=== PATIENT | female | born 1960 | race Caucasian/White ===

== ENCOUNTER 2020-11-30 09:34 | Day surgery (SDC) | payer BC ==
[~2020-11-30 09:34] MED LIST: Glycopyrrolate 0.2 MG/ML SDV ONE; Lactated Ringers 1,000 ML IV SCH; Midazolam 1 MG/ML 2 ML SDV ONE; Ondansetron 4 MG/2 ML SDV ONE; Propofol 200 MG/20 ML SDV ONE; fentaNYL 100 MCG/2 ML SDV ONE
--- NOTE | 2020-11-30 10:08 | PCM.PREANE ---
Preanesthetic Assessment - Anesthesia/Transfusion/Family Hx Anesthesia History: Prior Anesthesia Without Reaction Family History of Anesthesia Reaction: No Transfusion History: No Prior Transfusion(s) - Review of Systems General: No Symptoms Pulmonary: No Symptoms Cardiovascular: No Symptoms Gastrointestinal: No Symptoms Neurological: No Symptoms Other: Reports: None - Physical Assessment NPO Status Date: 11/30/20 NPO Status Time: 00:01 Vital Signs: Last Vital Signs Temp 97.9 F 11/30/20 09:40 Pulse 65 11/30/20 09:40 Resp 99 H 11/30/20 09:40 BP 113/65 11/30/20 09:40 Pulse Ox Height: 5 ft 5.25 in Weight: 137 lb ASA Class: 2 Mental Status: Alert & Oriented x3 Airway Class: Mallampati = 2 Dentition: Reports: Normal Dentition ROM/Head Extension: Full Lungs: Clear to Auscultation, Normal Respiratory Effort Cardiovascular: Regular Rate, Regular Rhythm - Allergies Allergies/Adverse Reactions: Allergies Allergy/AdvReac Type Severity Reaction Status Date / Time cephalexin monohydrate Allergy Other Verified 11/24/20 11:27 [From Keflex] codeine Allergy Airway Verified 11/24/20 11:27 Tightness nickel Allergy Rash Verified 11/24/20 11:27 - Anesthesia Plan Pre-Op Medication Ordered: None - Acknowledgements Anesthesia Type Planned: General Anesthesia Pt an Appropriate Candidate for the Planned Anesthesia: Yes Alternatives and Risks of Anesthesia Discussed w Pt/Guardian: Yes Pt/Guardian Understands and Agrees with Anesthesia Plan: Yes Additional Comments: npo after mn brannon tob quit 1999 etoh quit 1979 fatigue no cv problems depression par no questopns bmi 22 PreAnesthesia Questionnaire - Past Health History Medical/Surgical History: Denies Medical/Surgical History HEENT History: Reports: Other (See Below) Other HEENT History: wears glasses Cardiovascular History: Reports: None Respiratory History: Reports: None Gastrointestinal History: Reports: None Other Gastrointestinal History: takes Omeprazole occasionally Genitourinary History: Reports: None YARD ATTENDANT History: Reports: Endometriosis Other Musculoskeletal History: chronic fatique syndrome Neurological History: Reports: None Psychiatric History: Reports: Depression Endocrine/Metabolic History: Reports: None Other Endocrine/Metabolic History: hypoglycemic Hematologic History: Reports: None Immunologic History: Reports: None Oncologic (Cancer) History: Reports: Basal Cell Carcinoma Other Oncologic History: hx skin cancer Dermatologic History: Reports: None - Past Surgical History HEENT Surgical History: Reports: Tonsillectomy Other Female Surgeries/Procedures: laparoscopy x2 for endometriosis, cryo ablation of cervix Other Musculoskeletal Surgeries/Procedures:: hx foot surgery - SUBSTANCE USE Tobacco Use Status *Q: Former Tobacco User Tobacco Use Within Last Twelve Months: No Recreational Drug Use History: No - HOME MEDS Home Medications: Home Meds buPROPion [Wellbutrin] 150 mg PO DAILY 09/03/14 [History] Omeprazole 20 mg PO DAILY PRN 11/24/20 [History] estradioL [Estrace 0.01% Vaginal Crm] 1 dose VAG ASDIRECTED 11/24/20 [History] - CURRENT (IN HOUSE) MEDS Current Meds: Current Medications Lactated Ringer's (Ringers, Lactated) 1,000 mls @ 125 mls/hr IV ASDIRECTED FARIBA Discontinued Medications Fentanyl (Fentanyl 100 Mcg/2 Ml Sdv) Confirm Administered Dose 100 mcg .ROUTE .STK-MED ONE Stop: 11/30/20 08:25 Glycopyrrolate (Glycopyrrolate 0.2 Mg/Ml Sdv) Confirm Administered Dose 0.2 mg .ROUTE .STK-MED ONE Stop: 11/30/20 08:25 Acetaminophen (Ofirmev 1000 Mg/100 Ml) Confirm Administered Dose 100 mls @ as directed .ROUTE .STK-MED ONE Stop: 11/30/20 08:26 Midazolam HCl (Midazolam 1 Mg/Ml 2 Ml Sdv) Confirm Administered Dose 2 mg .ROUTE .STK-MED ONE Stop: 11/30/20 08:25 Ondansetron HCl (Ondansetron 4 Mg/2 Ml Sdv) Confirm Administered Dose 4 mg .ROUTE .STK-MED ONE Stop: 11/30/20 08:25 Propofol (Propofol 200 Mg/20 Ml Sdv) Confirm Administered Dose 400 mg .ROUTE .STK-MED ONE Stop: 11/30/20 08:25
[2020-11-30] MEDS ORDERED: Bupivacaine 0.5% 10 ML SDV ONE (10:18)
--- NOTE | 2020-11-30 11:13 | PCM.OPNOTE ---
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 EBL in mLs: 10 Complications: None Known Condition: Good
[2020-11-30] MEDS ORDERED: fentaNYL 50 MCG/ML SDV IVPUSH PRN (11:26)
[2020-11-30] MEDS ORDERED: Ketorolac 15 MG/ML SDV IVPUSH ONE (11:30)
[2020-11-30] MEDS ORDERED: fentaNYL 100 MCG/2 ML SDV ONE (11:30)
[2020-11-30] MEDS ORDERED: Ketorolac 30 MG/ML SDV ONE (11:35)
[2020-11-30] MEDS ORDERED: Meperidine PF 25 MG/ML Syringe ONE (12:00)
[2020-11-30] MEDS ORDERED: fentaNYL 100 MCG/2 ML SDV IVPUSH PRN (12:00)
[2020-11-30] MEDS ORDERED: Meperidine PF 25 MG/ML Syringe IVPUSH ONE (12:00)
--- NOTE | 2020-11-30 12:16 | PCM.POSTAN ---
POST ANESTHESIA ASSESSMENT - MENTAL STATUS Mental Status: Alert (no anesthetic problems, some shivering- treated), Oriented - VITAL SIGNS Vital Signs: Last Vital Signs Temp 97.5 F 11/30/20 11:09 Pulse 76 11/30/20 12:10 Resp 13 11/30/20 12:10 BP 103/61 11/30/20 12:10 Pulse Ox 95 11/30/20 12:10 - RESPIRATORY Respiratory Status: Respiratory Rate WNL, Airway Patent, O2 Saturation Stable - CARDIOVASCULAR CV Status: Pulse Rate WNL, Blood Pressure Stable - GASTROINTESTINAL GI Status: No Symptoms - POST OP HYDRATION Hydration Status: Adequate & Stable
[2020-11-30 13:38] VITALS: BP 104/62; PULSE 62
--- NOTE | 2020-11-30 13:59 | PCM48HPAN ---
Post Anesthesia Note - EVALUATION WITHIN 48HRS OF ANESTHETIC Vital Signs in Normal Range: Yes Patient Participated in Evaluation: Yes Respiratory Function Stable: Yes Airway Patent: Yes (Throat a little sore.) Cardiovascular Function Stable: Yes Hydration Status Stable: Yes Pain Control Satisfactory: Yes Nausea and Vomiting Control Satisfactory: Yes Mental Status Recovered: Yes (Doing well, a little sedate from analgesics,) Vital Signs: Last Vital Signs Temp 35.9 C L 11/30/20 12:15 Pulse 62 11/30/20 13:30 Resp 15 11/30/20 13:30 BP 104/62 11/30/20 13:30 Pulse Ox 100 11/30/20 13:30 - COMMENTS/OBSERVATIONS Free Text/Narrative:: Doing well. Ready for discharge.
--- NOTE | 2020-11-30 18:11 | OR ---
SURGEON: Linette Valle M.D. DATE OF PROCEDURE: 11/30/2020 PREOPERATIVE DIAGNOSIS: Cervical dysplasia. POSTOPERATIVE DIAGNOSIS: Cervical dysplasia. PROCEDURE: Loop electrode excisional procedure. PRIMARY SURGEON: Linette Valle M.D. ANESTHESIA: General LMA with cervical block. ESTIMATED BLOOD LOSS: Less than 5 mL. FINDINGS: The transition zone is within the endocervical canal and not visible. COMPLICATIONS: None known. DISPOSITION: Stable to Recovery. BRIEF HISTORY: This is a 60-year-old female. She has a remote history of a prior cryo or laser of the cervix. She presented with a positive HPV and incomplete colposcopy as the transformation zone was within the cervical canal. However, ECC was positive for dysplasia. Therefore, I recommended proceeding with a loop electrode excisional procedure with risks discussed including bleeding, infection, and discomfort. DESCRIPTION OF PROCEDURE: With the patient in dorsal lithotomy position, under adequate general LMA analgesia, colposcopy was performed with the insulated speculum in place and again findings were noted above. The transformation zone was not visible. A total of 10 mL of 1% lidocaine with 1:100,000 epinephrine was injected at 12, 5, and 7 o'clock position. Loop electrode with a pure cut setting of 40 was utilized to excise the ectocervix. A smaller pass was taken for the endocervix. The ectocervix was labeled at 12 o'clock. The endocervix was labeled at 9 o'clock, and the endocervical curettings were collected. The base was cauterized with ball tip cautery and treated with Monsel solution. Final sponge, needle, and instrument counts were correct. There were no known complications. The patient was transferred to Recovery in good condition. ELE / KELTON /[id number]
== END 2020-11-30 14:00 | disposition home or self-care (01) ==
LOC: MW.SDS 09:34
PROVIDERS: ATTEND Obstetrics & Gynecology
DX: D06.0 Carcinoma in situ of endocervix (principal); Z88.6 Allergy status to analgesic agent; Z88.8 Allergy status to other drugs, medicaments and biological substances; Z79.899 Other long term (current) drug therapy; Z87.891 Personal history of nicotine dependence; Z98.890 Other specified postprocedural states
CPT/HCPCS: 00940; 88305; 88307; J0131; J1885; J2175; J2250; J2405; J2704; J3010; J3490; J7120

== ENCOUNTER 2023-09-20 11:16 | Emergency (ER) | payer MEDICARE ==
[2023-09-20] MEDS: Sodium Chloride 0.9% 2.5 ML Syringe FLUSH PRN (12:47)
[2023-09-20] MEDS: Sodium Chloride 0.9% 10 ML Syringe FLUSH PRN (12:47)
[2023-09-20 12:52] LABS: BASOPHILS ABSOLUTE AUTO 0.03 K/uL (0.00-0.20); BASOPHILS PERCENT AUTO 0.9 % (0.0-1.0); EOSINOPHILS ABSOLUTE AUTO 0.02 K/uL (0.00-0.45); EOSINOPHILS PERCENT AUTO 0.6 % (0.0-6.0); HEMATOCRIT 38.8 % (37.0-47.0); HEMOGLOBIN 13.1 g/dL (12.0-16.0); IMMATURE GRAN ABSOLUTE AUTO 0.01 K/uL (0.00-0.05); IMMATURE GRAN PERCENT AUTO 0.3 % (0.0-0.4); LYMPHOCYTES ABSOLUTE AUTO 1.12 K/uL (1.00-4.80); LYMPHOCYTES PERCENT AUTO 35.1 % (24.0-44.0); MEAN CORPUSCULAR HEMOGLOBIN 30.7 pg (28.0-32.0); MEAN CORPUSCULAR HGB CONC 33.8 g/dL (32.0-36.0); MEAN CORPUSCULAR VOLUME 90.9 fL (83.0-99.0); MEAN PLATELET VOLUME 10.1 fL (9.4-12.3); MONOCYTES ABSOLUTE AUTO 0.33 K/uL (0.00-0.80); MONOCYTES PERCENT AUTO 10.3 % (0.0-8.0); NEUTROPHILS ABSOLUTE AUTO 1.68 K/uL (1.80-7.70); NEUTROPHILS PERCENT AUTO 52.8 % (41.0-71.0); PLATELET COUNT,PLT 248 K/uL (150-400); RED BLOOD CELL COUNT 4.27 M/uL (4.10-5.30); WHITE BLOOD CELL COUNT,WBC 3.19 K/uL (3.9-11.3)
[2023-09-20 13:38] LABS: A/G RATIO 1.1 (0.9-1.6); ALANINE AMINOTRANSFERASE,ALT 37 IU/L (14-63); ALKALINE PHOSPHATASE 89 U/L (46-116); ASPARTATE AMNIOTRANSFERASE,AST 29 IU/L (15-37); BILIRUBIN TOTAL 0.9 mg/dL (0.2-1.0); BLOOD UREA NITROGEN,BUN 15 mg/dL (7.0-18.0); CALCIUM 9.6 mg/dL (8.5-10.1); CHLORIDE,CL 104 mmol/L (98-107); CREATININE 0.9 mg/dL (0.6-1.0); EST CRCL DRUG DOSING (CG) 60.24 mL/min; GLUCOSE RANDOM 95 mg/dL (74-106); POTASSIUM,K 4.4 mmol/L (3.5-5.1); PROTEIN TOTAL,TP 7.7 g/dL (6.4-8.2); SODIUM,NA 141 mmol/L (136-145)
[2023-09-20 13:40] LABS: ESTIMATED GFR 71 mL/min (>60)
[2023-09-20] MEDS: Iopamidol 755 MG/ML 500 ML Multipack Bottle IVPUSH STA (14:22)
[2023-09-20 15:26] VITALS: BP 104/64; PULSE 77
== END 2023-09-20 15:27 | disposition home or self-care (01) ==
LOC: MW.ED 11:16
DX: R07.9 Chest pain, unspecified (principal); R42 Dizziness and giddiness; Z79.899 Other long term (current) drug therapy; Z88.1 Allergy status to other antibiotic agents; Z88.5 Allergy status to narcotic agent; Z91.048 Other nonmedicinal substance allergy status
CPT/HCPCS: 36415; 70450; 70498; 71046; 80053; 84484; 85025; 93005; 99285; J3490; Q9967; 93010; 99284

== ENCOUNTER 2024-11-21 08:28 | Day surgery (SDC) | payer MEDICARE ==
[~2024-11-21 08:28] MED LIST changes: -Glycopyrrolate 0.2 MG/ML SDV ONE; -Lactated Ringers 1,000 ML IV SCH; -Midazolam 1 MG/ML 2 ML SDV ONE; -Ondansetron 4 MG/2 ML SDV ONE; -Propofol 200 MG/20 ML SDV ONE; +Sodium Chloride 0.9% 10 ML Syringe FLUSH PRN; +Sodium Chloride 0.9% 2.5 ML Syringe FLUSH PRN; +Sodium Chloride 0.9% 20 ML SDV IV PRN; -fentaNYL 100 MCG/2 ML SDV ONE
[2024-11-21] MEDS: Lactated Ringers 1,000 ML IV SCH (08:57)
[2024-11-21] MEDS ORDERED: propofoL 500 MG/50 ML 50 ML ONE (09:49)
[2024-11-21 11:53] VITALS: BP 99/52
[2024-11-21] MEDS: Ketorolac 10 MG Tab PO ONE (12:06)
[2024-11-21] MEDS: Cyclobenzaprine 10 MG Tab PO PRN (12:07)
[2024-11-21 12:18] VITALS: PULSE 56
== END 2024-11-21 13:00 | disposition home or self-care (01) ==
LOC: MW.SDS 08:28
PROVIDERS: ATTEND Surgery
DX: K63.5 Polyp of colon (principal); K62.1 Rectal polyp; K21.9 Gastro-esophageal reflux disease without esophagitis; F32.A Depression, unspecified; F41.9 Anxiety disorder, unspecified; K59.09 Other constipation; Z87.891 Personal history of nicotine dependence; Z79.899 Other long term (current) drug therapy; Z88.5 Allergy status to narcotic agent
CPT/HCPCS: 45380; 88305; A9270; J2704; J7120; 00811